=== PATIENT | female | born 1985 | race Two or more races ===

== ENCOUNTER 2018-04-20 00:45 | Emergency (ER) | payer BC, MEDICAID ==
[2016-06-15 20:47] VITALS: Wt 61.2 kg
[~2018-04-20 00:45] MED LIST: ANUHC30T PR; Benzocaine 60 ML TP; DOCU240C67 PO; IBUP800T37 PO; Lanolin TP; PREN-127 PO; TUCKS TP
--- NOTE | 2018-04-20 00:51 | ER Report ---
History and Physical Time Seen By : 00:50 HPI/ROS CHIEF COMPLAINT: Body aches, fever and chills, persistent coughing HISTORY OF PRESENT ILLNESS: 33-year-old female G, at 6 weeks of , breast-feeding. Her latest child. She was seen today and diagnosed with influenza A. She was started on Tamiflu. Patient's unable to sleep for the last 2 days due to severity of bodyaches. She's been taking Tylenol with minimal improvement of her symptoms. She presents to the ER tonight and quite ill and with her heart racing. REVIEW OF SYSTEMS: Respiratory: As above Cardiovascular: No chest pain, no palpitations. Gastrointestinal: As above Musculoskeletal: No back pain. Allergies: Coded Allergies: No Known Drug Allergies (Unverified , 04/20/18) Home Meds Active Scripts Promethazine Hcl (PROMETHAZINE HCL) 25 Mg Tablet, 25 MG PO Q6H PRN for vomiting or cough relief, #8 TAB Prov:DANIELLA GLOVER DO 04/20/18 Hydrocodone Bit/Acetaminophen (HYDROCODON-ACETAMINOPHEN 5-325) 1 Each Tablet, 1 EACH PO Q6H PRN for pain or cough suppression, #8 TAKE ONE TABLET BY MOUTH EVERY 6 HOURS NEEDED FOR PAIN or cough relief Prov:DANIELLA GLOVER DO 04/20/18 [Lanolin Oint 7 Gm Tube] 7 GM OINT No Conflict Check, 0 GM TP PRN PRN for DISCOMFORT FOR NURSING MOTHERS, TUBE Prov:ALONDRA DRISCOLL MD 06/18/16 Ibuprofen (IBUPROFEN) 800 Mg Tablet, 800 MG PO 0500,1300,2100 for 10 Days, TAB Prov:ALONDRA DRISCOLL MD 06/18/16 Hydrocortisone (PROCTOCREAM-HC) 30 Gm Cream..g., 0 GM UT BID PRN for HEMORRHOIDS for 10 Days, TUBE Prov:ALONDRA DRISCOLL MD 06/18/16 Glycerin/[facility] [place] (PREPARATION H) 1 Pkg Pad, 0 PKG TP PRN PRN for PAIN for 10 Days, PAD Prov:ALONDRA DRISCOLL MD 06/18/16 Docusate Calcium (DOCUSATE CALCIUM) 240 Mg Capsule, 240 MG PO BID for 10 Days, C APSULE Prov:ALONDRA DRISCOLL MD 06/18/16 [Benzocaine 20% 60 Ml Btl] 60 ML AERS No Conflict Check, 0 ML TP PRN PRN for PAIN for 10 Days Prov:ALONDRA DRISCOLL MD 06/18/16 Reported Medications Levothyroxine Sodium (LEVOTHYROXINE SODIUM) 50 Mcg Tablet, 50 MCG PO QDAY, TAB 04/20/18 Vits W-Ca,Fe,Fa(<1MG) ( VITAMINS) 1 Each Tablet, 1 EACH PO DAILY, TAB 06/15/16 Reviewed Nurses Notes: Yes Old Medical Records Reviewed: Yes Hx Smoking: No Smoking Status: Never Smoker Exposure to Second Hand Smoke?: No Constitutional Vital Sign - Last 24 Hours 04/20/18 04/20/18 04/20/18 04/20/18 01:02 01:06 01:15 01:30 Temp 99.4 Pulse 129 102 Resp 14 B/P (MAP) 105/79 105/79 (88) 101/77 (85) Pulse Ox 94 91 O2 Delivery Room Air 04/20/18 04/20/18 01:42 02:00 Pulse 79 B/P (MAP) 102/76 (85) Pulse Ox 99 O2 Flow Rate 2.0 Physical Exam General Appearance: The patient is alert, has no immediate need for airway protection and no current signs of toxicity. Vital signs stable, afebrile, tachycardic HEENT: Pupils equal and round no injection. TMs normal, oropharynx with moderate erythema, no exudate Respiratory: Chest is non tender, lungs are clear to auscultation. No wheezing or rails Cardiac: regular rate and rhythm Gastrointestinal: Abdomen is soft and non tender, no masses, bowel sounds normal . Musculoskeletal: Neck: Neck is supple and non tender. No meningismus, no lymphadenopathy Extremities have full range of motion and are non tender. Skin: No rashes or lesions. DIFFERENTIAL DIAGNOSIS: After history and physical exam differential diagnosis was considered for adult fever including but not limited to viral syndromes including influenza, urinary tract infection, pneumonia and sepsis. Medical Decision Making Data Points Result Diagram: 04/20/188 04/20/18117 Laboratory Hematology Test 04/20/18 01:05 04/20/18 01:18 Urine Color Colorless Urine Clarity Clear Urine pH 6.0 pH (4.8-9.5) Urine Specific [place] 1.004 Urine Protein Negative mg/dL (NEGATIVE) Urine Glucose (UA) Negative mg/dL (NEGATIVE) Urine Ketones Negative mg/dL (NEGATIVE) Urine Blood Negative (NEGATIVE) Urine Nitrite Negative (NEGATIVE) Urine Bilirubin Negative (NEGATIVE) Urine Urobilinogen Negative mg/dL (0.2-1.9) Urine Leukocyte Esterase Negative (NEGATIVE) Urine RBC <1 /HPF (0-2/HPF) Urine WBC 1 /HPF (0-5/HPF) Urine Squamous Epithelial Cells Many /LPF (</=FEW) Urine Bacteria Few /HPF (NONE-FEW) Urine Mucus None /HPF (NONE-FEW) Red Blood Count 4.19 M/uL (4.17-5.56) Mean Corpuscular Volume 94.7 fL (80.0-96.0) Mean Corpuscular Hemoglobin 32.8 pg (26.0-33.0) Mean Corpuscular Hemoglobin Concent 34.6 g/dL (32.0-36.0) Red Cell Distribution Width 13.7 % (11.5-14.5) Mean Platelet Volume 8.5 fL (7.2-11.1) Neutrophils (%) (Auto) 64.1 % (39.4-72.5) Lymphocytes (%) (Auto) 22.3 % (17.6-49.6) Monocytes (%) (Auto) 12.9 % (4.1-12.4) Eosinophils (%) (Auto) 0.3 % (0.4-6.7) Basophils (%) (Auto) 0.4 % (0.3-1.4) Nucleated RBC Relative Count (auto) 0.1 /100WBC Neutrophils # (Auto) 6.4 K/uL (2.0-7.4) Lymphocytes # (Auto) 2.2 K/uL (1.3-3.6) Monocytes # (Auto) 1.3 K/uL (0.3-1.0) Eosinophils # (Auto) 0.0 K/uL (0.0-0.5) Basophils # (Auto) 0.0 K/uL (0.0-0.1) Nucleated RBC Absolute Count (auto) 0.01 K/uL Sodium Level 136 mmol/L (137-145) Potassium Level 4.0 mmol/L (3.5-5.0) Chloride Level 104 mmol/L (98-107) Carbon Dioxide Level 22 mmol/L (22-31) Blood Urea Nitrogen 7 mg/dl (7-18) Creatinine 0.40 mg/dl (0.52-1.04) Glomerular Filtration Rate Calc > 60.0 Random Glucose 111 mg/dl (75-110) Calcium Level 9.4 mg/dl (8.4-10.2) Total Bilirubin 0.2 mg/dl (0.2-1.3) Aspartate Amino Transf (AST/SGOT) 24 U/L (0-35) Alanine Aminotransferase (ALT/SGPT) 40 U/L (0-56) Alkaline Phosphatase 67 U/L (0-126) Total Protein 7.5 g/dl (6.3-8.2) Albumin 4.5 g/dl (3.5-5.0) Amylase Level 46 U/L (0-110) Lipase 129 U/L (23-300) Chemistry Test 04/20/18 01:05 04/20/18 01:18 Urine Color Colorless Urine Clarity Clear Urine pH 6.0 pH (4.8-9.5) Urine Specific [place] 1.004 Urine Protein Negative mg/dL (NEGATIVE) Urine Glucose (UA) Negative mg/dL (NEGATIVE) Urine Ketones Negative mg/dL (NEGATIVE) Urine Blood Negative (NEGATIVE) Urine Nitrite Negative (NEGATIVE) Urine Bilirubin Negative (NEGATIVE) Urine Urobilinogen Negative mg/dL (0.2-1.9) Urine Leukocyte Esterase Negative (NEGATIVE) Urine RBC <1 /HPF (0-2/HPF) Urine WBC 1 /HPF (0-5/HPF) Urine Squamous Epithelial Cells Many /LPF (</=FEW) Urine Bacteria Few /HPF (NONE-FEW) Urine Mucus None /HPF (NONE-FEW) White Blood Count 10.0 k/uL (4.5-11.0) Red Blood Count 4.19 M/uL (4.17-5.56) Hemoglobin 13.7 g/dL (12.0-16.0) Hematocrit 39.7 % (34.0-47.0) Mean Corpuscular Volume 94.7 fL (80.0-96.0) Mean Corpuscular Hemoglobin 32.8 pg (26.0-33.0) Mean Corpuscular Hemoglobin Concent 34.6 g/dL (32.0-36.0) Red Cell Distribution Width 13.7 % (11.5-14.5) Platelet Count 259 K/uL (150-450) Mean Platelet Volume 8.5 fL (7.2-11.1) Neutrophils (%) (Auto) 64.1 % (39.4-72.5) Lymphocytes (%) (Auto) 22.3 % (17.6-49.6) Monocytes (%) (Auto) 12.9 % (4.1-12.4) Eosinophils (%) (Auto) 0.3 % (0.4-6.7) Basophils (%) (Auto) 0.4 % (0.3-1.4) Nucleated RBC Relative Count (auto) 0.1 /100WBC Neutrophils # (Auto) 6.4 K/uL (2.0-7.4) Lymphocytes # (Auto) 2.2 K/uL (1.3-3.6) Monocytes # (Auto) 1.3 K/uL (0.3-1.0) Eosinophils # (Auto) 0.0 K/uL (0.0-0.5) Basophils # (Auto) 0.0 K/uL (0.0-0.1) Nucleated RBC Absolute Count (auto) 0.01 K/uL Glomerular Filtration Rate Calc > 60.0 Calcium Level 9.4 mg/dl (8.4-10.2) Total Bilirubin 0.2 mg/dl (0.2-1.3) Aspartate Amino Transf (AST/SGOT) 24 U/L (0-35) Alanine Aminotransferase (ALT/SGPT) 40 U/L (0-56) Alkaline Phosphatase 67 U/L (0-126) Total Protein 7.5 g/dl (6.3-8.2) Albumin 4.5 g/dl (3.5-5.0) Amylase Level 46 U/L (0-110) Lipase 129 U/L (23-300) Urinalysis Test 04/20/18 01:05 Urine Color Colorless Urine Clarity Clear Urine pH 6.0 pH (4.8-9.5) Urine Specific [place] 1.004 Urine Protein Negative mg/dL (NEGATIVE) Urine Glucose (UA) Negative mg/dL (NEGATIVE) Urine Ketones Negative mg/dL (NEGATIVE) Urine Blood Negative (NEGATIVE) Urine Nitrite Negative (NEGATIVE) Urine Bilirubin Negative (NEGATIVE) Urine Urobilinogen Negative mg/dL (0.2-1.9) Urine Leukocyte Esterase Negative (NEGATIVE) Urine RBC <1 /HPF (0-2/HPF) Urine WBC 1 /HPF (0-5/HPF) Urine Squamous Epithelial Cells Many /LPF (</=FEW) Urine Bacteria Few /HPF (NONE-FEW) Urine Mucus None /HPF (NONE-FEW) ED Course/Re-evaluation Clinical Indication for ER IV: Hydration, IV Access ED Course Patient was minute to an examination room. H&P was done. The differential diagnosis was considered. Patient really appears quite dehydrated and miserable. She's been able to keep anything down. She's been vomiting. She is treated with IV fluid hydration, Zofran, fentanyl and a liter of normal saline. She feels much better. Patient be discharged home with a limited supply of hyd rocodone to suppress her cough and take care of her body aches and Phenergan to control her vomiting. so she can stay hydrated. Patient advised to follow-up with her WATER SUPERVISOR doc if unimproved in 2-3 days. Decision to Disposition Date: Apr 20, 2018 Decision to Disposition Time: 01:53 Depart Departure Latest Vital Signs Vital Signs Date Time Temp Pulse Resp B/P (MAP) Pulse Ox O2 Delivery O2 Flow Rate FiO2 04/20/18 02:00 79 102/76 (85) 99 04/20/18 01:42 2.0 04/20/18 01:02 99.4 14 Room Air Impression: Primary Impression: Influenza A Additional Impressions: Vomiting 6 weeks gestation of Condition: Improved Disposition: HOME OR SELF-CARE New Scripts Promethazine Hcl (PROMETHAZINE HCL) 25 Mg Tablet 25 MG PO Q6H PRN for vomiting or cough relief, #8 TAB Prov: DANIELLA GLOVER DO 04/20/18 Hydrocodone Bit/Acetaminophen (HYDROCODON-ACETAMINOPHEN 5-325) 1 Each Tablet 1 EACH PO Q6H PRN for pain or cough suppression, #8 TAKE ONE TABLET BY MOUTH EVERY 6 HOURS NEEDED FOR PAIN or cough relief Prov: DANIELLA GLOVER DO 04/20/18 Patient Instructions: Influenza (ED) Additional Instructions: Take hydrocodone/acetaminophen 5/325 every 6 hours as needed for cough suppression along with Phenergan/promethazine 25 mg Only take one extra Tylenol 325 mg if you take the hydrocodone with acetaminophen 325 mg, so as not to take excess Tylenol Continue taking Tamiflu 75 mg twice daily until gone Follow-up with your WATER SUPERVISOR if unimproved in 2-3 days Problem Qualifiers Additional Impressions: Vomiting Vomiting type: unspecified Vomiting Intractability: unspecified Nausea presence: unspecified Qualified Codes: R11.10 - Vomiting, unspecified DANIELLA GLOVER DO Apr 20, 2018 00:51
[2018-04-20] MEDS ORDERED: NS(*) 0.9% 1000 ML BAG 1,000 ML IV ONE (01:03)
[2018-04-20] MEDS ORDERED: PROMETHAZINE 25 MG/ML 1 ML AMP IVP ONE (01:05)
[2018-04-20] MEDS ORDERED: ONDANSETRON 4 MG/2 ML VIAL IVP ONE (01:05)
[2018-04-20] MEDS ORDERED: LEVO50TA86 PO (01:11)
[2018-04-20] MEDS ORDERED: fentaNYL CITR 100 MCG/2 ML AMP IVP ONE (01:15)
[2018-04-20 01:35] LABS: PLATELET COUNT, AUTOMATED 259 K/uL (150-450)
[2018-04-20] MEDS ORDERED: ACET/HYDROC 5/325MG TH ER ONLY 2 TAB/BOTTLE PO ONE (01:55)
[2018-04-20] MEDS ORDERED: PROMETHAZINE HCL 25 MG TAB TH 2 TAB/BOTTLE PO ONE (01:55)
[2018-04-20] MEDS ORDERED: PROM-110 PO (01:56)
[2018-04-20] MEDS ORDERED: LOR5/325 PO (01:56)
[2018-04-20 02:00] VITALS: BP 102/76
== END 2018-04-20 02:01 | disposition home or self-care (01) ==
LOC: ER 01:18
DX: O26.891 Other specified pregnancy related conditions, first trimester (principal); Z3A.01 Less than 8 weeks gestation of pregnancy
CPT/HCPCS: 81001; 82150; 83690; 85025; 96374; 96375; 99284; J2405; J2550; J3010; J7030; 82040; 82247; 82310; 82374; 82435; 82565; 82947; 84075; 84132; 84155; 84295; 84450; 84460; 84520